=== PATIENT | male | born 1955 | race Two or more races ===

== ENCOUNTER → 2022-12-07 | Day surgery (SDC) | payer MEDICARE, MEDICAID ==
[~2022-12-07] VITALS: Ht 175.3 cm; Wt 86.2 kg
[~2022-12-07] MED LIST: AMLO10TA80 PO; BUPIVACAINE HCL/PF 0.5% (5MG/ML) 10ML ONE; FENTANYL CITRATE/PF 50MCG/ML 2ML VIAL ONE; HYDR25TA PO; HYDROMORPHONE HCL/PF 2MG/ML CPJ IV PRN; KETOROLAC 30MG/ML VIAL ONE; LABETALOL 5MG/ML SYR 20 MG/4 ML SYRINGE IV PRN; LACTATED RINGERS 1,000 ML IV SCH; LIDOCAINE HCL 1% 20ML VIAL (Pyxis) INJ ONE; LISI40TA13 PO; MEPERIDINE HCL/PF 25MG/ML CPJ IV PRN; MIDAZOLAM HCL 2 MG/2 ML VIAL ONE; ONDANSETRON HCL 4MG/2ML INJ IV PRN; POLYMYXIN B SULFATE 500000 UNITS/VIAL ONE; PROPOFOL 200MG/20ML VIAL IV ONE; SKIN ADHESIVE 0.7 GM EA TOP ONE
== END | disposition home or self-care (01) ==
LOC: OR 05:27
PROVIDERS: ATTEND Specialist
DX: L72.3 Sebaceous cyst (principal); I10 Essential (primary) hypertension; Z79.899 Other long term (current) drug therapy; Z98.890 Other specified postprocedural states; Z20.822 Contact with and (suspected) exposure to COVID-19
CPT/HCPCS: 11404; 12032; 87426; 88304; A4217; C9803; J1885; J2250; J2704; J3010; J3490; Z7610

== ENCOUNTER → 2023-02-15 | Day surgery (SDC) | payer MEDICARE, MEDICAID ==
[~2023-02-15] VITALS: Ht 175.3 cm; Wt 86.2 kg
[~2023-02-15] MED LIST changes: +DEXAMETHASONE 4MG/ML 1ML VIAL ONE; +FENTANYL CITRATE/PF 50MCG/ML 2ML VIAL IV PRN; +GLYCOPYRROLATE 0.2 MG/ML 2ML VIAL IV PRN; +KETOROLAC 30MG/ML VIAL IV NR; -KETOROLAC 30MG/ML VIAL ONE; -LABETALOL 5MG/ML SYR 20 MG/4 ML SYRINGE IV PRN; +LACTATED RINGERS 1,000 ML IV ONE; -LACTATED RINGERS 1,000 ML IV SCH; +LIDOCAINE HCL 1% 10 MG/ML 10ML VIAL ONE; -LIDOCAINE HCL 1% 20ML VIAL (Pyxis) INJ ONE; -MEPERIDINE HCL/PF 25MG/ML CPJ IV PRN; -MIDAZOLAM HCL 2 MG/2 ML VIAL ONE; +NEOSTIGMINE METHYLSULFATE 1MG/ML 10 ML VIAL ONE; +ONDANSETRON HCL 4MG/2ML INJ ONE; +ROCURONIUM BROMIDE 10MG/ML VIAL 5ML IV ONE; +SUCCINYLCHOLINE CHLORIDE 200MG/10ML IV ONE
[2023-02-15 10:53] VITALS: BP 128/75; PULSE 86; RESP 14
== END | disposition home or self-care (01) ==
LOC: OR 06:56
PROVIDERS: ATTEND Specialist
DX: K43.6 Other and unspecified ventral hernia with obstruction, without gangrene (principal); K42.0 Umbilical hernia with obstruction, without gangrene; I10 Essential (primary) hypertension; Z79.899 Other long term (current) drug therapy; Z98.890 Other specified postprocedural states
CPT/HCPCS: 49592; A4217; C1768; J0330; J1100; J1885; J2405; J2704; J2710; J3010; J3490; Z7610